=== PATIENT | female | born 1935 | race Caucasian/White ===

== ENCOUNTER 2017-09-07 14:54 | Emergency (ER) | payer MEDICARE, BC ==
[~2017-09-07 14:54] MED LIST: ASPI1TAB69 PO; BENA40TA PO; LEVO112T2 PO; RANI1TAB5 PO; SPIR50TA PO; TYLE325T PO
[2017-09-07 15:01] VITALS: BP 138/60; PULSE 65; RESP 18; TEMP 98.2; O2SAT 96
[2017-09-07] MEDS ORDERED: ASPI81CH CHEW (15:13)
[2017-09-07] MEDS ORDERED: SODIUM CHLORID 0.9% 500 ML INJ 500 ML IV ONE (15:15)
--- NOTE | 2017-09-07 15:17 | PD ---
HPI Chief Complaint: Syncope/Near-Syncope Time Seen by Provider: 15:01 Travel History International Travel<30 days: No Contact w/Intl Traveler<30days: No Traveled to known affect area: No History of Present Illness HPI This is an 82-year-old female who presents to the emergency department having had an episode where she felt like she was going to pass out that started at the doctor's office rate before she was supposed to get a cortisone shot in her knee. She felt very faint and lightheaded and dizzy and she got very clammy. Her symptoms lasted for about an hour and her persisting here in the emergency department. They are moderate severity. She denies any chest pain or associated shortness of breath. She's not been feeling ill lately and she felt fine up until this morning. She says this happened to her once before after she got a spinal injection years ago. PFSH Past Medical History Arthritis: Yes Cancer: No Cardiovascular Problems: No Diabetes: No Diminished Hearing: No Endocrine: Yes Gastrointestinal Disorders: Yes (REFLUX) Genitourinary: No Hepatitis: No Hiatal Hernia: No Hypertension: Yes Immune Disorder: No Musculoskeletal: Yes (OA, HERNIATED DISK AND NECROSIS) Neurologic: No Psychiatric: No Reproductive: No Respiratory: No Thyroid Disease: Yes Influenza Vaccination: No ?: Not Past Surgical History Abdominal Surgery: Yes (CHOLECYSTECTOMY, APPENDECTOMY) AICD: No Appendectomy: Yes Cardiac Surgery: No Cholecystectomy: Yes Ear Surgery: No Endocrine Surgery: No Eye Surgery: No Genitourinary Surgery: No Gynecologic Surgery: Yes (HYSTERECTOMY) Hysterectomy: Yes (PARTIAL) Joint Replacement: No Oral Surgery: No Pacemaker: No Thoracic Surgery: No Other Surgery: Yes Social History Alcohol Use: No Tobacco Use: No Substance Use: No Allergies-Medications (Allergen,Severity, Reaction): Coded Allergies: penicillin G (Unverified Allergy, Severe, Itching, 09/07/17) Reported Meds & Prescriptions Reported Meds & Active Scripts Active Reported Aspirin 81 Mg Chew 81 Mg CHEW DAILY Tylenol (Acetaminophen) 325 Mg Tab 650 Mg PO Q8HR PRN Ranitidine 75 (Ranitidine HCl) 75 Mg Tab 75 Mg PO DAILY Take 30 to 60 minutes before eating food or drinking beverages that cause heartburn. Spironolactone 50 Mg Tab 50 Mg PO DAILY Benazepril (Benazepril HCl) 40 Mg Tab 40 Mg PO DAILY Levothyroxine (Levothyroxine Sodium) 112 Mcg Tab 112 Mcg PO DAILY Review of Systems Except as stated in HPI: all other systems reviewed are Neg Physical Exam Narrative GENERAL: Unwell-appearing, pale SKIN: Focused skin assessment warm and dry. HEAD: Atraumatic. Normocephalic. EYES: Pupils equal and round. No injection or drainage. ENT: Moist mucous membranes NECK: Trachea midline. CARDIOVASCULAR: Regular rate and rhythm. No murmur appreciated. 1+ pitting edema in the bilateral lower extremities. RESPIRATORY: Clear to auscultation. Breath sounds equal bilaterally. GASTROINTESTINAL: Abdomen soft, non-tender, nondistended. MUSCULOSKELETAL: No obvious deformities. NEUROLOGICAL: Awake and alert. No obvious cranial nerve deficits. Moving all extremities. PSYCHIATRIC: Appropriate mood and affect; insight and judgment normal. Data Data Last Documented VS Vital Signs Date Time Temp Pulse Resp B/P (MAP) Pulse Ox O2 Delivery O2 Flow Rate FiO2 09/07/17 15:45 55 18 119/44 (69) 95 Room Air 09/07/17 15:01 98.2 Orders Orders Complete Blood Count With Diff (09/07/17 15:15) Comprehensive Metabolic Panel (09/07/17 15:15) ^ Insert Iv (09/07/17 15:15) Urinalysis - C+S If Indicated (09/07/17 15:15) Troponin I (09/07/17 15:15) Ct Brain W/O Iv Contrast(Rout) (09/07/17 ) Sodium Chlorid 0.9% 500 Ml Inj (Ns 500 M (09/07/17 15:15) Ondansetron Inj (Zofran Inj) (09/07/17 15:21) Electrocardiogram (09/07/17 15:04) Ondansetron Inj (Zofran Inj) (09/07/17 15:45) Labs Laboratory Tests Test 09/07/17 15:00 White Blood Count 10.7 TH/MM3 Red Blood Count 4.73 MIL/MM3 Hemoglobin 13.7 GM/DL Hematocrit 41.6 % Mean Corpuscular Volume 88.0 FL Mean Corpuscular Hemoglobin 28.9 PG Mean Corpuscular Hemoglobin Concent 32.8 % Red Cell Distribution Width 13.1 % Platelet Count 231 TH/MM3 Mean Platelet Volume 8.9 FL Neutrophils (%) (Auto) 35.8 % Lymphocytes (%) (Auto) 54.7 % Monocytes (%) (Auto) 7.2 % Eosinophils (%) (Auto) 1.7 % Basophils (%) (Auto) 0.6 % Neutrophils # (Auto) 3.8 TH/MM3 Lymphocytes # (Auto) 5.8 TH/MM3 Monocytes # (Auto) 0.8 TH/MM3 Eosinophils # (Auto) 0.2 TH/MM3 Basophils # (Auto) 0.1 TH/MM3 CBC Comment AUTO DIFF Blood Urea Nitrogen 31 MG/DL Creatinine 1.10 MG/DL Random Glucose 134 MG/DL Total Protein 7.4 GM/DL Albumin 4.0 GM/DL Calcium Level 9.2 MG/DL Alkaline Phosphatase 94 U/L Aspartate Amino Transf (AST/SGOT) 22 U/L Alanine Aminotransferase (ALT/SGPT) 20 U/L Total Bilirubin 0.4 MG/DL Sodium Level 138 MEQ/L Potassium Level 4.6 MEQ/L Chloride Level 107 MEQ/L Carbon Dioxide Level 17.9 MEQ/L Anion Gap 13 MEQ/L Estimat Glomerular Filtration Rate 48 ML/MIN Troponin I LESS THAN 0.02 NG/ML MDM Medical Decision Making Medical Screen Exam Complete: Yes Emergency Medical Condition: Yes Interpretation(s) afebrile, no tachycardia, normotensive no leukocytosis acidosis, bun slightly elevated Differential Diagnosis vasovagal syncope, arrythmia, dehydration, sepsis Narrative Course This is an 82 year old female who presents to the emergency department following an episode of feeling lightheaded and dizzy prior to a cortisone injection in her knee. EKG is reassuring, labs demonstrate some possible dehydration. Pt. was given a 500 cc bolus and [address] is pending. I suspect this is vasovagal syncope and the patient may be slightly volume deplete. I think she can go home if her CT is normal and she feels improved. Carmella Sales MD Sep 07, 2017 15:17
[2017-09-07] MEDS ORDERED: ONDANSETRON HCL 4 MG/2 ML VIAL ONE (15:21)
[2017-09-07 15:22] LABS: AUTOMATED NEUTROPHIL # 3.8 TH/MM3 (1.8-7.7); BASOPHIL # 0.1 TH/MM3 (0-0.2); BASOPHIL % 0.6 % (0.0-2.0); EOSINOPHIL # 0.2 TH/MM3 (0-0.4); EOSINOPHIL % 1.7 % (0.0-4.0); HEMATOCRIT 41.6 % (35.0-46.0); LYMPH % 54.7 % (9.0-44.0); LYMPHOCYTE # 5.8 TH/MM3 (1.0-4.8); MEAN CORPUSCULAR HEMOGLOBIN 28.9 PG (27.0-34.0); MEAN CORPUSCULAR HGB CONC 32.8 % (32.0-36.0); MONO % 7.2 % (0.0-8.0); NEUT % 35.8 % (16.0-70.0); PLATELET COUNT 231 TH/MM3 (150-450); RED BLOOD COUNT 4.73 MIL/MM3 (4.00-5.30); RED CELL DISTRIBUTION WIDTH 13.1 % (11.6-17.2); WHITE BLOOD COUNT 10.7 TH/MM3 (4.0-11.0)
[2017-09-07 15:31] LABS: CHLORIDE 107 MEQ/L (98-107); POTASSIUM 4.6 MEQ/L (3.5-5.1); SODIUM (NA) 138 MEQ/L (136-145)
[2017-09-07 15:33] LABS: HEMO FLAGS AUTO DIFF
[2017-09-07 15:35] LABS: ANION GAP 13 MEQ/L (5-15); BICARBONATE 17.9 MEQ/L (21.0-32.0); BLOOD UREA NITROGEN 31 MG/DL (7-18)
[2017-09-07 15:38] LABS: ALT (GPT) 20 U/L (10-53); AST (GOT) 22 U/L (15-37); GLOMERULAR FILTRATION RATE 48 ML/MIN (>89)
[2017-09-07 15:39] LABS: TOTAL BILIRUBIN ADULT 0.4 MG/DL (0.2-1.0)
[2017-09-07 15:41] LABS: ALKALINE PHOSPHATASE 94 U/L (45-117)
[2017-09-07 15:45] VITALS: BP 119/44; PULSE 55; RESP 18; O2SAT 95
[2017-09-07] MEDS ORDERED: ONDANSETRON HCL 4 MG/2 ML VIAL IV ONE (15:45)
--- NOTE | 2017-09-07 16:11 | RADRPT ---
EXAM DATE/TIME: 09/07/2017 15:57 [facility] COMPARISON: CT BRAIN W/O CONTRAST, February 02, 2013, 15:24. INDICATIONS : Syncopal, dizzy and diaphoretic today. RADIATION DOSE: 60.01 CTDIvol (mGy) MEDICAL HISTORY : Hypertension. SURGICAL HISTORY : Appendectomy. Cholecystectomy.Hysterectomy. ENCOUNTER: Initial ACUITY: 1 day PAIN SCALE: 0/10 LOCATION: cranial TECHNIQUE: Multiple contiguous axial images were obtained of the head. Using automated exposure control and adj ustment of the mA and/or kV according to patient size, radiation dose was kept as low as reasonably a chievable to obtain optimal diagnostic quality images. DICOM format image data is available electro nically for review and comparison. FINDINGS: CEREBRUM: The ventricles are normal. There is mild generalized atrophy. No evidence of midline shift, mass les ion, hemorrhage or acute infarction. No extra-axial fluid collections are seen. POSTERIOR FOSSA: The cerebellum and brainstem are intact. The 4th ventricle is midline. The cerebellopontine angle i s unremarkable. EXTRACRANIAL: Visualized sinuses are clear. SKULL: The calvaria is intact. No evidence of skull fracture. CONCLUSION: Stable noncontrast head CT. No acute intracranial abnormality is identified. Chris Lutz MD on September 07, 2017 at 16:07 Board Certified Radiologist. This report was verified electronically.
[2017-09-07 16:29] LABS: EOSINOPHILS 1 % (0-4); NEUTROPHIL # MANUAL DIFF 3.6 TH/MM3 (1.8-7.7); POLYS (SEG NEUTROPHILS) 34 % (16-70); WBC DIFF SAMPLE 100
[2017-09-07 16:30] LABS: PLATELET MORPHOLOGY NORMAL (NORMAL); SCAN/DIFF FINAL DIFF MANUAL
--- NOTE | 2017-09-07 16:44 | PD ---
Data Data Last Documented VS Vital Signs Date Time Temp Pulse Resp B/P (MAP) Pulse Ox O2 Delivery O2 Flow Rate FiO2 09/07/17 18:53 55 18 136/59 (84) 98 09/07/17 15:45 Room Air 09/07/17 15:01 98.2 Orders Orders Complete Blood Count With Diff (09/07/17 15:15) Comprehensive Metabolic Panel (09/07/17 15:15) ^ Insert Iv (09/07/17 15:15) Urinalysis - C+S If Indicated (09/07/17 15:15) Troponin I (09/07/17 15:15) Ct Brain W/O Iv Contrast(Rout) (09/07/17 ) Sodium Chlorid 0.9% 500 Ml Inj (Ns 500 M (09/07/17 15:15) Ondansetron Inj (Zofran Inj) (09/07/17 15:21) Electrocardiogram (09/07/17 15:04) Ondansetron Inj (Zofran Inj) (09/07/17 15:45) Urine Culture (09/07/17 16:55) Ed Discharge Order (09/07/17 18:35) Labs Laboratory Tests Test 09/07/17 15:00 10 16:55 White Blood Count 10.7 TH/MM3 Red Blood Count 4.73 MIL/MM3 Hemoglobin 13.7 GM/DL Hematocrit 41.6 % Mean Corpuscular Volume 88.0 FL Mean Corpuscular Hemoglobin 28.9 PG Mean Corpuscular Hemoglobin Concent 32.8 % Red Cell Distribution Width 13.1 % Platelet Count 231 TH/MM3 Mean Platelet Volume 8.9 FL Neutrophils (%) (Auto) 35.8 % Lymphocytes (%) (Auto) 54.7 % Monocytes (%) (Auto) 7.2 % Eosinophils (%) (Auto) 1.7 % Basophils (%) (Auto) 0.6 % Neutrophils # (Auto) 3.8 TH/MM3 Lymphocytes # (Auto) 5.8 TH/MM3 Monocytes # (Auto) 0.8 TH/MM3 Eosinophils # (Auto) 0.2 TH/MM3 Basophils # (Auto) 0.1 TH/MM3 CBC Comment AUTO DIFF Differential Total Cells Counted 100 Neutrophils % (Manual) 34 % Lymphocytes % 60 % Monocytes % 5 % Eosinophils % 1 % Neutrophils # (Manual) 3.6 TH/MM3 Differential Comment FINAL DIFF MANUAL Platelet Morphology Comment NORMAL Blood Urea Nitrogen 31 MG/DL Creatinine 1.10 MG/DL Random Glucose 134 MG/DL Total Protein 7.4 GM/DL Albumin 4.0 GM/DL Calcium Level 9.2 MG/DL Alkaline Phosphatase 94 U/L Aspartate Amino Transf (AST/SGOT) 22 U/L Alanine Aminotransferase (ALT/SGPT) 20 U/L Total Bilirubin 0.4 MG/DL Sodium Level 138 MEQ/L Potassium Level 4.6 MEQ/L Chloride Level 107 MEQ/L Carbon Dioxide Level 17.9 MEQ/L Anion Gap 13 MEQ/L Estimat Glomerular Filtration Rate 48 ML/MIN Troponin I LESS THAN 0.02 NG/ML Urine Color YELLOW Urine Turbidity CLEAR Urine pH 5.5 Urine Specific Lutz 1.018 Urine Protein NEG mg/dL Urine Glucose (UA) NEG mg/dL Urine Ketones NEG mg/dL Urine Occult Blood NEG Urine Nitrite NEG Urine Bilirubin NEG Urine Leukocyte Esterase NEG Urine WBC 0-2 /hpf Urine WBC Clumps FEW Urine Squamous Epithelial Cells 0-5 /hpf Microscopic Urinalysis Comment CULTURE INDICATED MDM Supervised Visit with CRISTI: No Narrative Course patient care assumed from Dr. Carmella Holland at 1600. An 82-year-old female presents emergency Department with vague symptoms of just not feeling well today while in the way to have an injection of her low back. Her labs are reassuring, EKG reassuring, CT head is reassuring. Awaiting urinalysis and then anticipate discharge home after reexamination. On reexamination the patient is surrounded by family members with whom she lives with (daughter). Family states is happened to her before to previous injection but didn't have until after injection was done, she went emerged permit that time and they couldn't figure was wrong with her. The patient has not had any chest pain shortness of breath abdominal pain nausea vomiting diarrhea or focalized weakness. She appears well, family states she has not eaten all day. She was fed in the emergency Department tolerated a full meal, she also ambulated in the emergency department and had no limitations in mobility. Family would like to take her home to follow-up with her primary care physician. I discussed the option of admission for observation for possible syncopal workup and they think that this is not indicated at this time. I tend to agrees the patient appears well and she is not given any high risk features of presyncopal symptoms. Her labs and EKG were reassuring. Discussed return to ED criteria, follow-up with a primary care physician by phone in the morning. She is stable for discharge. Diagnosis Primary Impression: Dizziness and giddiness Additional Instruction: call your regular physician in the morning for a follow-up appointment. He can return to emergency department any time for any worsening or concerning symptoms. Disposition: 01 DISCHARGE HOME Condition: Stable Jean-Claude Duran MD Sep 07, 2017 16:44
[2017-09-07] MEDS ORDERED: VITA1000 PO (16:50)
[2017-09-07] MEDS ORDERED: VITA250T3 PO (16:50)
[2017-09-07] MEDS ORDERED: LEVO150T7 PO (16:50)
[2017-09-07] MEDS ORDERED: MULTTAB67 PO (16:50)
[2017-09-07] MEDS ORDERED: DOCU2.5C PO (16:50)
[2017-09-07 17:11] LABS: BLOOD, URINE NEG (NEG); GLUCOSE,URINE NEG (NEG); KETONE, URINE NEG (NEG); NITRITE,URINE NEG (NEG); PH, URINE 5.5 (5.0-8.5)
[2017-09-07 17:14] LABS: URINE COLOR YELLOW (YELLW/STRAW)
[2017-09-07 17:15] LABS: COMMENT (UR) CULTURE INDICATED; CULTURE IF INDICATED CULTURE INDICATED; SQUAMOUS EPITHELIAL CELL URINE 0-5 /hpf (0-5); WBC, URINE 0-2 /hpf (0-5)
[2017-09-07 18:53] VITALS: BP 136/59
--- NOTE | 2017-09-09 07:24 | EKG ---
Date Performed: 09/07/2017 Time Performed: 15:04:39 PTAGE: 82 years EKG: SINUS BRADYCARDIA WITH OCCASIONAL SUPRAVENTRICULAR PREMATURE COMPLEXES POOR INITIAL ANTERIO R FORCE V1 AND V2 WHICH MAY BE NORMAL VARIANT Compared to the previous tracing PACs are new ABNORMAL ECG PREVIOUS TRACING : 10/24/2016 09.54 DOCTOR: Phill Nicole Interpretating Date/Time 09/09/2017 07:23:35
== END 2017-09-07 18:54 | disposition home or self-care (01) ==
LOC: PHED 14:54
DX: R42 Dizziness and giddiness (principal); I10 Essential (primary) hypertension
CPT/HCPCS: 70450; 80053; 81001; 84484; 85007; 85027; 87086; 93005; 96361; 96374; 99285; J2405; J7040